=== PATIENT | male | born 1960 | race Two or more races ===

== ENCOUNTER 2018-05-10 07:25 | Day surgery (SDC) | payer OTHER | END 2018-05-10 13:10 | disposition home or self-care (01) | LOC: AMB-ENDOS 07:25 | DX: K57.32 Diverticulitis of large intestine without perforation or abscess without bleeding (principal); K29.50 Unspecified chronic gastritis without bleeding ==

== ENCOUNTER → 2019-06-07 08:14 | Outpatient (CLI) | payer OTHER | END | disposition home or self-care (01) | LOC: LAB 08:14 | DX: R22.2 Localized swelling, mass and lump, trunk (principal); Z01.818 Encounter for other preprocedural examination; K43.2 Incisional hernia without obstruction or gangrene ==

== ENCOUNTER 2019-06-18 05:43 | Day surgery (SDC) | payer OTHER ==
[2019-06-18] MEDS ORDERED: ULTRACET PO ×2 (12:03→12:16)
== END 2019-06-18 13:45 | disposition home or self-care (01) ==
LOC: CIR.AMB 05:43
DX: L72.0 Epidermal cyst (principal)

== ENCOUNTER 2023-10-03 05:30 | Day surgery (SDC) | payer OTHER ==
[~2023-10-03 05:30] MED LIST: ROSUVASTATIN CA10 MG; ULTRACET PO; VALSARTAN80 MG
[2023-10-03] MEDS ORDERED: BUPIVACAINE HCL/MPF 0.5% 30ML VIAL ONE (06:54)
[2023-10-03] MEDS ORDERED: ENOXAPARIN SODIUM 40 MG/0.4 ML SYRINGE SUBCUTANEO ONE (06:54)
[2023-10-03] MEDS ORDERED: LIDOCAINE HCL 1%/EPINEPHRINE 20ML VIAL IJ ONE (06:54)
[2023-10-03] MEDS ORDERED: CEFTRIAXONE SODIUM 2,000 MG VIAL ONE (06:55)
[2023-10-03] MEDS ORDERED: METRONIDAZOLE/SODIUM CHLORIDE 500 MG/100 ML PIGGYBACK IV ONE (06:55)
[2023-10-03] MEDS ORDERED: NEURONTIN300 MG PO (09:43)
[2023-10-03] MEDS ORDERED: PERCOCET 5-3251 EACH PO (09:43)
[2023-10-03] MEDS ORDERED: CELEBREX200MG PO (09:44)
[2023-10-03] MEDS ORDERED: POLY119PG PO (09:44)
[2023-10-03] MEDS ORDERED: DIPHENHYDRAMINE HCL 50 MG/ML VIAL 1ML ONE (11:27)
[2023-10-03] MEDS ORDERED: DIPHENHYDRAMINE HCL 50 MG CAPSULE PO STA (11:46)
[2023-10-03] MEDS ORDERED: NAPHAZOLINE HCL/PHENIRAMINE 20 DR/ML DROPS OP STA (11:47)
[2023-10-03] MEDS ORDERED: DIPHENHYDRAMINE HCL 50 MG CAPSULE PO SCH (12:00)
[2023-10-03] MEDS ORDERED: DIPHENHYDRAMINE HCL 50 MG/ML VIAL 1ML IV STA (12:25)
[2023-10-03] MEDS ORDERED: DIPHENHYDRAMINE HCL 50 MG/ML VIAL 1ML IV SCH (12:26)
[2023-10-03] MEDS ORDERED: NAPHAZOLINE HCL/PHENIRAMINE 20 DR/ML DROPS OP SCH (21:00)
== END 2023-10-03 16:10 | disposition home or self-care (01) ==
LOC: CIR.AMB 05:30
PROVIDERS: ATTEND Surgery
DX: K40.90 Unilateral inguinal hernia, without obstruction or gangrene, not specified as recurrent (principal); E78.00 Pure hypercholesterolemia, unspecified; K76.0 Fatty (change of) liver, not elsewhere classified; I10 Essential (primary) hypertension
CPT/HCPCS: 49650; C1781